=== PATIENT | female | born 1990 | race Caucasian/White ===

== ENCOUNTER 2016-08-23 19:05 | Emergency (ER) | payer OTHER ==
[~2016-08-23] VITALS: Ht 154.9 cm; Wt 75.1 kg
[2016-08-23 19:32] LABS: HEMATOCRIT 41.5 % (36.0-46.0); MCH 29.5 PG (29.0-34.0); MCHC 33.3 G/DL (30.0-36.0); MCV 88.7 FL (83-99); MEAN PLAT.VOLUME 8.8 uM^3 (9.5-12.4); PLATELET COUNT 310 K/uL (156-360); RBC DIS.WIDTH-CV 12.6 % (11.8-14.6); RBC DIS.WIDTH-SD 41.1 % (39-53); RED BLOOD COUNT 4.68 M/uL (3.80-5.20); WHITE BLOOD COUNT 7.3 K/uL (4.1-10.2)
[2016-08-23 19:41] LABS: CHLORIDE 106 mEq/L (99-109); POTASSIUM 3.9 mEq/L (3.7-5.4); SODIUM 140 mEq/L (136-147)
[2016-08-23 19:42] LABS: GLUCOSE 89 mg/dL (70-99)
[2016-08-23 19:44] LABS: ANION GAP 8 MEQ/L (2-14)
[2016-08-23 19:47] LABS: UREA NITROGEN (BUN) 13 mg/dL (9-23)
[2016-08-23 19:52] LABS: GFR ESTIMATE (CALCULATED) > 59 mL/min/
[2016-08-23 20:21] LABS: ADD MIUA? YES; BILIRUBIN NEGATIVE; BLOOD LARGE; COLOR YELLOW ((YELLOW)); GLUCOSE (STRIP) NEGATIVE; KETONES NEGATIVE; LEUKOCYTES TRACE; NITRITE NEGATIVE; PROTEIN (STRIP) 30; SPECIFIC GRAVITY 1.021 (1.000-1.030); UROBILINOGEN 0.2 MG/DL (0.2-1.0)
[2016-08-23 20:53] LABS: BACTERIA 2+ /HPF; CASTS NONE SEEN /LPF; CRYSTALS NONE SEEN; EPITHELIAL CELLS 3+ /HPF; MUCUS NONE SEEN /LPF; RED BLOOD CELLS 40-50 /HPF (0-5); UCUL ADDED? NO; WHITE BLOOD CELLS RARE /HPF (0-5)
[2016-08-23 21:43] LABS: QUANTITATIVE HCG < 4.0 MIU/ML
[2016-08-23] MEDS ORDERED: FLOMAX0.4 MG PO (22:41)
[2016-08-23] MEDS ORDERED: PERCOCET 5/31 TABLET PO (22:41)
[2016-08-23] MEDS ORDERED: BACTRIM,SEPT1 TABLET PO (22:41)
[2016-08-23] MEDS ORDERED: ZOFRAN4 MG PO (22:42)
[2016-08-23] MEDS ORDERED: TORADOL10 MG PO (22:42)
[2016-08-23 23:46] VITALS: BP 122/85
== END 2016-08-24 00:09 | disposition home or self-care (01) ==
LOC: EME 19:05
DX: N20.0 Calculus of kidney (principal); Z87.442 Personal history of urinary calculi
CPT/HCPCS: 74176; 80048; 81003; 84702; 85027; 87086; 99281; 99284; J0696; J1885; J2405; J3010; J7030; J7050; Q0169